=== PATIENT | female | born 1960 | race Caucasian/White ===

== ENCOUNTER → 2016-12-27 | Outpatient (CLI) | payer BC ==
--- NOTE | 2016-12-27 09:32 | KCIC ---
Bilateral diagnostic digital mammograms: Reason for examination: Follow-up nodules. Comparison is made to previous studies dated back to 09/22/2014. The skin and nipples show no abnormalities. No abnormal axillary lymph nodes are seen. The breast parenchyma shows scattered fibroglandular density. (Breast density: Category B.) There are no dominant masses, suspicious calcifications or architectural distortions. Impression: No evidence of malignancy. Ultrasound to follow. BI-RADS Category 0: Incomplete. Ultrasound to follow. Bilateral breast ultrasound: Comparison is made to previous study dated 10/24/2015 and 09/30/2014. Ultrasound examination was performed bilaterally in the areas of previous concern. In the right breast at the 2:00 position 2 cm from the nipple, there continues to be 5.4 mm cystic lesion. No other cystic or solid nodules are seen. No abnormal appearing lymph nodes are seen in the right axilla. In the left breast at the 2:00 position 7 cm from the nipple, there continues to be small hypoechoic fibrocystic type lesion measuring 9.6 mm in greatest dimension. This shows a slight increase in size but continues to have benign appearance. No suspicious-appearing lesions are seen. No abnormal appearing lymph nodes are seen in the left axilla. IMPRESSION: Continued presence of a small cystic lesion in the right breast at the 2:00 position measuring 5.4 mm in size. Small benign-appearing fibrocystic nodule measuring 9.6 mm in size at the 2:00 position 7 cm from the nipple in the left breast. Recommend continued sonographic follow-up in 6 months. BI-RADS Category 3: Probably Benign. "Our facility is accredited by the [employer] Mammography Program." This patient's information has been entered into a reminder system for the patient to be notified with the results of her examination and a target date for the next mammogram. Electronically signed by: Hali Kowalski MD (12/27/2016 9:28 AM) [id number]
== END | disposition home or self-care (01) ==
LOC: KCIC MAMMO 07:51
PROVIDERS: ATTEND Internal Medicine
DX: N63 Unspecified lump in breast (principal)
CPT/HCPCS: 76641; G0204; 77066

== ENCOUNTER → 2017-12-29 | Outpatient (CLI) | payer BC ==
--- NOTE | 2017-12-29 11:51 | RAD ---
Complete abdominal ultrasound History: Epigastric pain. Comparison: None. Procedure: Transabdominal ultrasound images are obtained. Findings: Visualized pancreas is unremarkable. Liver is mildly increased in echogenicity. No focal hepatic masses are identified. Right lobe of the liver measures 16.8 cm. Gallbladder has an unremarkable appearance. Common bile duct measures normally at 4 mm in diameter. Spleen is homogeneous and measures 9.4 cm in length. Right kidney is normal in size and configuration without hydronephrosis. Left kidney is normal in size and configuration without hydronephrosis. Visualized portions of the aorta and IVC have normal caliber. Impression: 1. Echogenic liver, compatible fatty liver disease. Otherwise, unremarkable abdominal ultrasound. Electronically signed by: Dwayne Robison MD (12/29/2017 11:47 AM) [place] [id number]
== END | disposition home or self-care (01) ==
LOC: US 08:30
PROVIDERS: ATTEND Internal Medicine Gastroenterology
DX: R10.13 Epigastric pain (principal)
CPT/HCPCS: 76700

== ENCOUNTER → 2020-03-21 | Outpatient (CLI) | payer BC ==
[~2020-03-21] MED LIST: ALPR0.25 PO; ATOR20TA58 PO; ESTR42.53 VG; MULT-245 PO; OMEP20CA16 PO; OXYC1TAB15 PO
== END ==
LOC: LAB 15:01
PROVIDERS: ATTEND Surgery
DX: Z01.812 Encounter for preprocedural laboratory examination (principal); K37 Unspecified appendicitis; Z20.828 Contact with and (suspected) exposure to other viral communicable diseases
CPT/HCPCS: U0003

== ENCOUNTER 2020-03-24 08:35 | Day surgery (SDC) | payer BC ==
[~2020-03-24] VITALS: Ht 170.2 cm; Wt 83.6 kg
[~2020-03-24 08:35] MED LIST changes: +ACETAMINOPHEN 500 MG TABLET PO ONE; -ALPR0.25 PO; -ATOR20TA58 PO; +BUPIVACAINE-EPI 0.25%-1:200000 MPF 30 ML VIAL. INJ ONE; +DEXAMETHASONE SOD PHOS 4 MG/ML VIAL ONE; -ESTR42.53 VG; +GLYCOPYRROLATE 1 MG/5 ML VIAL. ONE; +HYDROmorphone 2 MG/ML VIAL IV PRN; +IV RINGERS,LACTATED 1000ML 1,000 ML IV SCH; +LIDOCAINE 1% PF 2 ML VIAL. ID PRN; +LIDOCAINE 2% PF 5 ML VIAL. ONE; +MIDAZOLAM HCL/PF 2 MG/2 ML VIAL. ONE; +MINERAL OIL for SURGERY 10 ML VIAL. MC ONE; +MORPHINE SULFATE 2 MG/ML VIAL. IV PRN; -MULT-245 PO; +NEOSTIGMINE METHYLSULFATE 5 MG/5 ML SYRINGE. ONE; -OMEP20CA16 PO; +ONDANSETRON PF 4 MG/2 ML VIAL. IV PRN; +ONDANSETRON PF 4 MG/2 ML VIAL. ONE; -OXYC1TAB15 PO; +PROCHLORPERAZINE 10 MG/2 ML VIAL. IV PRN; +PROPOFOL 10 MG/ML (20ML) VIAL. IV ONE; +ROCURONIUM 50 MG/5 ML VIAL. ONE; +SEVOFLURANE 61 TO 120 MINUTES. IH ONE; +fentaNYL PF VIAL 100 MCG/2 ML VIAL IV PRN; +fentaNYL PF VIAL 100 MCG/2 ML VIAL ONE
[2020-03-24] MEDS ORDERED: ATOR20TA58 PO (08:47)
[2020-03-24] MEDS ORDERED: ALPR0.25 PO (08:47)
[2020-03-24] MEDS ORDERED: OMEP20CA16 PO (08:47)
[2020-03-24] MEDS ORDERED: ESTR42.53 VG (08:47)
[2020-03-24] MEDS ORDERED: MULT-245 PO (08:47)
[2020-03-24] MEDS ORDERED: LIDOCAINE 2% PF 5 ML VIAL. ONE (11:03)
--- NOTE | 2020-03-24 11:12 | PDOC4 ---
Operative Note Operative Note Date: March 24, 2020 at 1107 Preoperative diagnosis: Appendicitis Postoperative diagnosis: Same Procedure: Robotic assisted laparoscopic interval appendectomy Surgeon: Serafin Specimen: Appendix Dictation: Patient is a 59-year-old female who 8 weeks ago had acute Penta situs with a large phlegmon was treated with IV antibiotics improved returns now to have an interval appendectomy. The procedure of interval appendectomy was explained to the patient detail risk-benefit were also discussed including bleeding infection injury to intra-abdominal contents possible necessitating further open operations alternatives to this procedure also discussed with the patient who seemed to understand and gave both verbal and written consent to have the procedure performed. Patient was taken to the operating room placed in the supine position general anesthesia was initiated once patient was sleeping intubated her abdomen was prepped and draped usual sterile fashion using ChloraPrep. An area in the left upper quadrant was injected with quarter percent Marcaine with epinephrine incision was made 11 blade scalpel and a 5 mm Visiport was placed under direct visualization in the abdomen creating pneumoperitoneum once this was complete 5 mm camera's placed within the abdomen which was inspected no other abnormalities were noted. A 12 mm port was placed in the left midabdomen a 8 mm da Barb port was placed in the left lower abdomen and the 5 mm Visiport was changed out for 8 mm da Barb port. The da Barb robot was brought and docked all port sites surgeon went to the robotic console using 2 graspers the area of the cecum was examined there were some adhesions along the lateral aspect of the abdominal wall these were freed up an area kind of behind the cecum was some inflammatory tissue the base of the appendix was visualized at the cecum there was only a small stump of appendix with some inflammatory mass just distal to that stump. A 3-0 Vicryl was used to loop the stump of the appendix and tied off. This was then transected with Endo Marcos scissors and the mesoappendix was taken down with fenestrated bipolar cautery. The stump was then oversewn with a 20V lock absorbable suture. The right lower quadrant was irrigated and suctioned dry hemostasis deemed appropriate that point the surgeon then went back to the operative field the robot was undocked from all port sites using a 5 mm camera was placed in the lower left port the Endo Catch bag was placed in the 12 mm port grasper was used in the left upper port to grasp the specimen placed within the Endo Catch bag. Endo Catch bag was then removed with the specimen the pneumoperitoneum was reduced all ports were removed the fascial defect at the 12 mm port site was closed with a single 0 Vicryl suture and the skin was reapproximated all port sites for subcuticular Monocryl Mastisol Steri-Strips and island dressings were applied. Patient was awakened and extubated in the operating room taken to recovery in stable condition all sponge instrument needle counts listed as correct estimated blood loss 10 mL CARLI TAYLOR MD Mar 24, 2020 11:12
--- NOTE | 2020-03-24 11:14 | DISCH ---
DISCHARGE INSTRUCTIONS Condition on Discharge Condition on Discharge: Stable Activity After Discharge Activity Instructions for Disc: Avoid exertion Other activity instructions: No lifting more than 20 pounds for 2 weeks Diet after Discharge Diet after Discharge: Regular Wound Incision Care Other wound/incision instructi: May shower in 24 hours Contacting the after DC Call your doctor for: If your condition worsens Follow-Up Follow up with: Dr. Taylor in 2 weeks CARLI TAYLOR MD Mar 24, 2020 11:14
[2020-03-24] MEDS ORDERED: OXYC1TAB15 PO (11:24)
[2020-03-24] MEDS ORDERED: oxyCODONE/APAP 5/325 1 TAB TABLET PO ONE (11:30)
[2020-03-24 11:45] VITALS: BP 135/85
== END 2020-03-24 12:39 | disposition home or self-care (01) ==
LOC: SURG 08:35
PROVIDERS: ATTEND Surgery
DX: K36 Other appendicitis (principal); I10 Essential (primary) hypertension; E78.00 Pure hypercholesterolemia, unspecified; K21.9 Gastro-esophageal reflux disease without esophagitis; F41.9 Anxiety disorder, unspecified; Z90.710 Acquired absence of both cervix and uterus; Z98.890 Other specified postprocedural states; Z79.899 Other long term (current) drug therapy; Z72.89 Other problems related to lifestyle; Z88.8 Allergy status to other drugs, medicaments and biological substances
CPT/HCPCS: 44970; C1782; J0690; J1100; J2250; J2405; J2704; J2710; J3010; J3490; S2900

== ENCOUNTER → 2020-05-31 | Outpatient (CLI) | payer BC ==
[~2020-05-31] MED LIST changes: -ACETAMINOPHEN 500 MG TABLET PO ONE; +ALPR0.25 PO; +ATOR20TA58 PO; -BUPIVACAINE-EPI 0.25%-1:200000 MPF 30 ML VIAL. INJ ONE; -DEXAMETHASONE SOD PHOS 4 MG/ML VIAL ONE; +ESTR42.53 VG; -GLYCOPYRROLATE 1 MG/5 ML VIAL. ONE; -HYDROmorphone 2 MG/ML VIAL IV PRN; -IV RINGERS,LACTATED 1000ML 1,000 ML IV SCH; -LIDOCAINE 1% PF 2 ML VIAL. ID PRN; -LIDOCAINE 2% PF 5 ML VIAL. ONE; -MIDAZOLAM HCL/PF 2 MG/2 ML VIAL. ONE; -MINERAL OIL for SURGERY 10 ML VIAL. MC ONE; -MORPHINE SULFATE 2 MG/ML VIAL. IV PRN; +MULT-245 PO; -NEOSTIGMINE METHYLSULFATE 5 MG/5 ML SYRINGE. ONE; +OMEP20CA16 PO; -ONDANSETRON PF 4 MG/2 ML VIAL. IV PRN; -ONDANSETRON PF 4 MG/2 ML VIAL. ONE; +OXYC1TAB15 PO; -PROCHLORPERAZINE 10 MG/2 ML VIAL. IV PRN; -PROPOFOL 10 MG/ML (20ML) VIAL. IV ONE; -ROCURONIUM 50 MG/5 ML VIAL. ONE; -SEVOFLURANE 61 TO 120 MINUTES. IH ONE; -fentaNYL PF VIAL 100 MCG/2 ML VIAL IV PRN; -fentaNYL PF VIAL 100 MCG/2 ML VIAL ONE
--- NOTE | 2020-05-31 09:31 | KCIC ---
EXAM: Bilateral screening mammogram. HISTORY: 59-year-old female presents for screening mammography. TECHNIQUE: Full-field digital craniocaudal and mediolateral oblique views of both breasts are obtaine d for evaluation. Computer aided detection was applied. COMPARISON: 12/27/2016 BREAST PARENCHYMAL DENSITY: Level B - Scattered fibroglandular densities. FINDINGS: There is no new suspicious mass, microcalcification or region of architectural distortion. There are stable areas of asymmetry and nodularity within both breasts. There are benign calcificatio ns. IMPRESSION: BI-RADS Category 2: Benign finding(s). RECOMMENDATION: Annual mammography is recommended. If your mammogram demonstrates that you have dense breast tissue, which could hide abnormalities, and if you have other risk factors for breast cancer that have been identified, you might benefit from s upplemental screening tests that may be suggested by your ordering physician. Dense breast tissue, i n and of itself, is a relatively common condition. This information is not provided to cause undue c oncern, but rather to raise your awareness and to promote discussion with your physician regarding th e presence of other risk factors, in addition to dense breast tissue. A report of your mammography re sults will be sent to you and your physician. You should contact your physician if you have any ques tions or concerns regarding this report. Mammography is a sensitive method for finding small breast cancers, but it does not detect them all a nd is not a substitute for careful clinical examination. A negative mammogram does not negate a clin ically suspicious finding and should not result in delay in biopsying a clinically suspicious abnorma lity. PQRS compliance statement - Patient information was entered into a reminder system with a target due date for the next mammogram. "Our facility is accredited by the [employer] Mammography [employer]." Electronically signed by: Alejandra Fenton MD (05/31/2020 9:29 AM) [email or web address]
== END ==
LOC: KCIC MAMMO 07:51
PROVIDERS: ATTEND Obstetrics & Gynecology
DX: Z12.31 Encounter for screening mammogram for malignant neoplasm of breast (principal)
CPT/HCPCS: 77067

== ENCOUNTER → 2021-06-20 | Outpatient (CLI) | payer BC ==
--- NOTE | 2021-06-22 08:44 | KCIC ---
Bilateral digital screening 2-D and 3-D (digital breast tomosynthesis) mammogram: Reason for examination: Routine screening. Comparison: Mammograms from 05/31/2020, 12/27/2016, and 10/24/2015. Targeted bilateral breast ultrasound from 12/27/2016. Interpretation was made with the benefit of CAD. FINDINGS: Breast density: Category B. There are scattered areas of fibroglandular density. No suspicious breast mass, malignant appearing calcifications, or architectural distortion is seen. T here are small oval circumscribed masses in both breasts which are likely due to cysts and/or fibroad enomas. Accounting for differences between the 2-D and 3-D technique, there has not been a significan t change. IMPRESSION: No evidence of malignancy. Assessment: BI-RADS 2. Benign findings. Recommendation: Routine screening mammograms. The patient will receive a letter with the results in the mail. Patient information will be entered i nto the mammography reminder system with a target recall date for the next mammogram. A reminder johnny er will be generated. Electronically signed by: Bettie Rodney MD (06/22/2021 8:42 AM) [email or web address]
== END ==
LOC: KCIC MAMMO 15:40
PROVIDERS: ATTEND Internal Medicine
DX: Z12.31 Encounter for screening mammogram for malignant neoplasm of breast (principal)
CPT/HCPCS: 77063; 77067